=== PATIENT | female | born 1960 | race Caucasian/White ===

== ENCOUNTER 2022-07-16 11:36 | Inpatient (IN) | payer MEDICAID ==
[2022-07-10 11:05] LABS: BASOPHILS # (AUTO) 0.1 X10'3 (0-0.2); BASOPHILS % (AUTO) 0.6 % (0-1); EOSINOPHILS # (AUTO) 0.3 X10'3 (0-0.9); EOSINOPHILS % (AUTO) 3.4 % (0-6); HEMATOCRIT 37.9 % (35.0-45.0); HEMOGLOBIN 12.5 g/dl (12.0-16.0); LYMPHOCYTES # (AUTO) 2.9 X10'3 (1.1-4.8); LYMPHOCYTES % (AUTO) 33.5 % (21-51); MEAN CORPUSCULAR HEMOGLOBIN 30.7 PG (27.0-31.0); MEAN CORPUSCULAR VOLUME 93.1 FL (78-98); MEAN PLATELET VOLUME 7.2 FL (7.4-10.4); MONOCYTES # (AUTO) 0.3 X10'3 (0-0.9); MONOCYTES % (AUTO) 3.6 % (2-12); NEUTROPHILS # (AUTO) 5.1 X10'3 (1.8-7.7); NEUTROPHILS % (AUTO) 58.9 % (42-75); PLATELET COUNT 306 X10'3 (140-440); RED BLOOD COUNT 4.07 X10'6 (4.20-5.60); RED CELL DISTRIBUTION WIDTH 18.3 % (11.5-14.5); WHITE BLOOD COUNT 8.6 X10'3 (4.5-11.0)
[2022-07-10 11:20] LABS: ALBUMIN 3.9 G/DL (3.4-5.0); ALBUMIN/GLOBULIN RATIO 1.1 (1.1-1.5); ALKALINE PHOSPHATASE 135 IU/L (46-116); BLOOD UREA NITROGEN 16 MG/DL (7-18); BUN/CREATININE RATIO 12.7 (6.6-38.0); CHLORIDE 106 MMOL/L (99-107); CREATININE 1.26 MG/DL (0.40-0.90); PRE OP ALT 18 U/L (30-65); PRE OP ANION GAP 10 (8-16); PRE OP AST 21 U/L (10-37); PRE OP BILIRUB, TOTAL 0.3 MG/DL (0.0-1.0); PRE OP GLUCOSE 124 MG/DL (70-104); PRE OP POTASSIUM 3.6 MMOL/L (3.4-5.1); PRE OP SODIUM 140 MMOL/L (135-145); TOTAL PROTEIN 7.5 G/DL (6.4-8.2); eGFR 43 ML/MIN
[~2022-07-16] VITALS: Ht 160 cm; Wt 119.7 kg
[2022-07-16] VITALS (24 sets, daily range): BP systolic 98–137; BP diastolic 57–92
[~2022-07-16 11:36] MED LIST: ACET-2615 PO; HYDR-3965 PO; ceFAZolin inj. 2,000 MG in dextrose 5%-water 100 ML IV ONE; famotidine 20mg tablet PO ONE; tranexamic acid 650mg tablet PO ONE; vancomycin 1,500 MG in NS 300ml IV soln IV ONE
[2022-07-16] MEDS: ringers solution, lacted 1,000 ML IV SCH ×2 (13:42→19:53)
[2022-07-16] MEDS ORDERED: fentaNYL/PF 50MCG/1 ML 2ML syringe ONE (13:54)
[2022-07-16] MEDS ORDERED: MIDAZolam 1 MG/ML 5ML VIAL ONE (13:54)
[2022-07-16] MEDS ORDERED: propofol inj 20 ML IV ONE (13:58)
[2022-07-16] MEDS ORDERED: sevoflurane 250ml liquid IH ONE (14:02)
[2022-07-16] MEDS ORDERED: ketorolac trometh. 30mg/ml inj. ONE (14:12)
[2022-07-16] MEDS ORDERED: ROPIVAcaine 0.5% (5mg/ml) 30ml vial ONE ×2 (14:12→16:27)
[2022-07-16] MEDS ORDERED: meperidine/PF 25mg/ml syringe IV PRN ×3 (15:45)
[2022-07-16] MEDS ORDERED: morphine 2 MG/ML inj. syringe IV PRN (15:45)
[2022-07-16] MEDS ORDERED: ringers solution, lacted 1,000 ML IV SCH (15:45)
[2022-07-16] MEDS ORDERED: morphine 4 MG/ML inj SYRINge IV PRN (15:45)
[2022-07-16] MEDS ORDERED: proCHLORperazine 10 MG/2 ml inj IV PRN (15:45)
[2022-07-16] MEDS ORDERED: ondansetron/PF 4mg/2ml inj IV PRN ×2 (15:45→18:15)
[2022-07-16] MEDS ORDERED: ROPIVAcaine 0.2% (10 MG/5 ML) BOLUS INJECTION INTERSCALE PRN (15:59)
[2022-07-16] MEDS ORDERED: ROPIVAcaine 0.2%/PF PUMP/bolus 545 ML INTERSCALE SCH (16:00)
[2022-07-16] MEDS ORDERED: rocuronium 10mg/ml inj IV ONE (16:27)
[2022-07-16] MEDS ORDERED: sugammadex 200mg/2ml injection IV ONE (17:08)
--- NOTE | 2022-07-16 17:10 | NUR ---
PT ARRIVED TO RR VIA BED ACCOMPANIED BY DR NELSON-ANESTHESIA REPORT GIVEN, PT RESPONDING TO VERBAL STIMULI, VSS, RIGHT SHOULDER WRAP IN PLACE-CDI WITH ICE, SLING ON, FINGERS PINK/WARM, SCALENE BLOCK IN PLACE-ABLE TO MOVE FINGERS, DENIES PAIN, SCDS ON, PT HAD PIV PLACED IN RIGHT FOOT IN OR AFTER MANY ATTEMPTS.
[2022-07-16] MEDS ORDERED: HYDROmorphone 1 mg/ml syringe IV PRN (18:15)
[2022-07-16] MEDS ORDERED: magnesium hydroxide 30ml (MOM) UD suspension PO PRN (18:15)
[2022-07-16] MEDS ORDERED: diphenhydrAMINE 25mg capsule PO PRN ×2 (18:15)
[2022-07-16] MEDS ORDERED: HYDROcodone/acetaminophen 10/325mg tab PO PRN ×2 (18:15)
[2022-07-16] MEDS ORDERED: HYDROmorphone inj. 0.5 MG/0.5 ML DISP.SYRIN IV PRN (18:15)
[2022-07-16] MEDS ORDERED: oxyCODONE IR 5mg (immed. release) tablet PO PRN (18:15)
[2022-07-16] MEDS ORDERED: naloxone 0.4 mg/ml inj IV PRN (18:15)
[2022-07-16] MEDS ORDERED: acetaminophen 325mg tablet PO PRN (18:15)
[2022-07-16] MEDS ORDERED: bisacodyl 10mg suppository rectal RC PRN (18:15)
[2022-07-16] MEDS ORDERED: HYDROcodone/acetaminophen 5mg/325mg tablet PO PRN (18:15)
--- NOTE | 2022-07-16 19:50 | NUR ---
PT DOING WELL, UP TO BSC TO VOID-TOLERATED WELL, IV INTACT IN FOOT-ATTEMPTED TO DO LIGHT WEIGHT-BEARING TO RIGHT FOOT WITH IV, ABLE TO EAT DINNER, DENIES PAIN, SCALENE BLOCK PRESENT-ABLE TO MOVE FINGERS, PINK/WARM, ON-Q ATTACHED AT 2ML/HR-EDUCATION GIVEN, NO CHANGE IN DRSG-CDI, SLING IN PLACE, REPORT CALLED TO LAKISHA RN-ALL QUESTIONS ANSWERED, TAKEN VIA BED WITH ALL BELONGINGS TO ROOM 352-ROPE CUTTER IN TO RECEIVE PT, BED LOW AND LOCKED, CALL LIGHT IN REACH.
[2022-07-16] MEDS ORDERED: vancomycin/NS 1 GM ADD-VANTAGE 250 ML IV SCH (20:00)
[2022-07-16] MEDS ORDERED: ACETAMINOPHEN 1000 MG PO SCH (20:00)
[2022-07-16] MEDS ORDERED: sennosides 8.6mg tablet PO SCH (21:00)
[2022-07-16] MEDS: potassium cl 20mEq in 1/2 NS 1,000 ML IV SCH (21:10)
[2022-07-16] MEDS: acetaminophen 325mg tablet PO SCH (21:11)
[2022-07-16] MEDS: oxyCODONE IR 5mg (immed. release) tablet PO PRN (21:12)
[2022-07-17] MEDS: ceFAZolin/D5W- 1GM premix 50 ML IV SCH ×2 (01:20→08:41)
[2022-07-17] MEDS: acetaminophen 325mg tablet PO SCH ×2 (02:00→08:37)
[2022-07-17] MEDS: potassium cl 20mEq in 1/2 NS 1,000 ML IV SCH (02:15)
[2022-07-17] MEDS: oxyCODONE IR 5mg (immed. release) tablet PO PRN ×2 (05:14→13:55)
--- NOTE | 2022-07-17 06:33 | NUR ---
Patient in room [facility] 352. I have received report from Joan Quiroz RN and had the opportunity to ask questions and assume patient care.
[2022-07-17 06:40] VITALS: BP 133/69
[2022-07-17 06:41] LABS: BASOPHILS % (AUTO) 0.5 % (0-1); EOSINOPHILS # (AUTO) 0.2 X10'3 (0-0.9); EOSINOPHILS % (AUTO) 1.9 % (0-6); HEMATOCRIT 30.2 % (35.0-45.0); HEMOGLOBIN 9.9 g/dl (12.0-16.0); LYMPHOCYTES # (AUTO) 2.2 X10'3 (1.1-4.8); LYMPHOCYTES % (AUTO) 22.4 % (21-51); MEAN CORPUSCULAR HEMOGLOBIN 30.8 PG (27.0-31.0); MEAN CORPUSCULAR HGB CONC 32.8 g/dL (33.0-36.5); MEAN CORPUSCULAR VOLUME 93.8 FL (78-98); MEAN PLATELET VOLUME 7.9 FL (7.4-10.4); MONOCYTES # (AUTO) 0.5 X10'3 (0-0.9); MONOCYTES % (AUTO) 4.8 % (2-12); NEUTROPHILS # (AUTO) 6.9 X10'3 (1.8-7.7); NEUTROPHILS % (AUTO) 70.4 % (42-75); PLATELET COUNT 251 X10'3 (140-440); RED BLOOD COUNT 3.22 X10'6 (4.20-5.60); RED CELL DISTRIBUTION WIDTH 17.9 % (11.5-14.5); WHITE BLOOD COUNT 9.8 X10'3 (4.5-11.0)
[2022-07-17 07:04] LABS: ANION GAP 10 (8-16); CHLORIDE 106 MMOL/L (99-107); POTASSIUM 3.8 MMOL/L (3.5-5.1); SODIUM 138 MMOL/L (135-145); TOTAL CARBON DIOXIDE 21.8 MMOL/L (24-32)
[2022-07-17] MEDS ORDERED: aspirin 325mg tablet PO SCH (08:30)
--- NOTE | 2022-07-17 14:23 | NUR ---
Patient seen by Physical therapy cleared for DC home. Dr juarez called charge nurse january to say that patient can go home if pain controlled and cleared by PT. patient DC home via private car with daughter in stable condition
[2022-07-18] MEDS ORDERED: acetaminophen 325mg tablet PO PRN (18:15)
== END 2022-07-17 14:00 | disposition home or self-care (01) | DRG 322 ==
LOC: PAS 11:36 → EDSTATUS 14:00 → SUR 3N 18:18
PROVIDERS: ADMIT Orthopaedic Surgery; ATTEND Orthopaedic Surgery
PROC: 0LS30ZZ Reposition Right Upper Arm Tendon, Open Approach (ICD-10-PCS; 2022-07-16)
PROC: 3E0T3BZ Introduction of Anesthetic Agent into Peripheral Nerves and Plexi, Percutaneous Approach (ICD-10-PCS; 2022-07-16)
PROC: 3E0T33Z Introduction of Anti-inflammatory into Peripheral Nerves and Plexi, Percutaneous Approach (ICD-10-PCS; 2022-07-16)
PROC: 0RRJ00Z Replacement of Right Shoulder Joint with Reverse Ball and Socket Synthetic Substitute, Open Approach (ICD-10-PCS; principal; 2022-07-16 14:02)
DX: S42.291A Other displaced fracture of upper end of right humerus, initial encounter for closed fracture (principal); E66.01 Morbid (severe) obesity due to excess calories; M75.121 Complete rotator cuff tear or rupture of right shoulder, not specified as traumatic; Z68.42 Body mass index [BMI] 45.0-49.9, adult
CPT/HCPCS: 36415; 73060; 76000; 80051; 80053; 82948; 85025; 87081; 97110; 97116; 97161; A4565; A4615; A4618; A7000; C1776; G0378; J0690; J1170; J1885; J2250; J2704; J2795; J3010; J3370; J3480; J3490; J7040; J7060; J7120; Q0163